=== PATIENT | female | born 1970 | race Caucasian/White ===

== ENCOUNTER 2020-09-02 10:03 | Emergency (ER) | payer OTHER ==
[~2020-09-02 10:03] MED LIST: ASPIR 8181 MG PO; EFFEXOR XR150 MG PO; ESTROVEN ENERG1 EACH PO; HCTZ25 MG PO; KRILL OIL500 MG PO; LIPITOR20 MG PO; SINGULAIR10 MG PO; SYNTHROID50 MCG PO; TENORMIN50 MG PO; VALSARTAN80 MG PO; VENLAFAXINE HCL75 M1 PO
[2020-09-02 11:09] LABS: BASOPHIL 0.7 % (0-2); EOSINOPHIL 2.1 % (0-5); HCT 47.1 % (37.0-47.0); HGB 16.1 g/dl (12.5-16.0); LYMPHOCYTE 22.3 % (15-48); MCH 31.9 pg (25.0-31.0); MCHC 34.2 g/dL (32.0-36.0); MCV 93.3 fL (78.0-100.0); MONOCYTE 11.4 % (0-12); NEUTROPHIL 62.5 % (41-80); NRBC 0; PLT 254 K/uL (150-400); RBC 5.05 M/uL (4.20-5.40); RDW 12.1 % (11.5-14.0)
[2020-09-02 11:42] LABS: INR 0.98 (0.9-1.2); PROTHROMBIN TIME 12.3 SECONDS (11.4-13.6)
[2020-09-02 11:54] LABS: ALBUMIN 3.4 g/dL (3.4-5.0); BILIRUBIN - TOTAL 0.9 mg/dL (0.2-1.0); BUN/CREAT RATIO (CALC) 16.2 RATIO; CREATININE 0.68 mg/dL (0.51-0.95); GLOBULIN (CALCULATION) 3.6 g/dL; MAGNESIUM 1.8 mg/dL (1.8-2.4); POTASSIUM 4.2 mmol/L (3.5-5.1)
[2020-09-02 17:48] LABS: BILIRUBIN NEGATIVE (NEGATIVE); BLOOD 3+ Ery/uL (NEGATIVE); CLARITY CLEAR (CLEAR); COLOR YELLOW (YELLOW); GLUCOSE (U) NORMAL (NORMAL); LEUKOCYTES NEGATIVE Leu/uL (NEGATIVE); NITRITE NEGATIVE (NEGATIVE); PROTEIN NEGATIVE (NEGATIVE); SPECIFIC GRAVITY <=1.005 (1.001-1.030); UROBILINOGEN 0.2 mg/dL (0.2-1.0); pH 6.5 (5.0-9.0)
[2020-09-02 17:55] LABS: SQUAMOUS EPITHELIAL CELLS RARE
[2020-09-02] MEDS ORDERED: ZOFRAN4 M1 PO (18:01)
== END 2020-09-02 18:07 | disposition home or self-care (01) ==
LOC: FER 10:03
PROVIDERS: Emergency Medicine
DX: S32.010A Wedge compression fracture of first lumbar vertebra, initial encounter for closed fracture (principal); M48.07 Spinal stenosis, lumbosacral region; N13.2 Hydronephrosis with renal and ureteral calculous obstruction; M51.27 Other intervertebral disc displacement, lumbosacral region; R47.81 Slurred speech; I10 Essential (primary) hypertension; X58.XXXA Exposure to other specified factors, initial encounter
CPT/HCPCS: 36415; 70450; 70551; 71045; 72131; 80053; 81001; 83735; 84443; 85025; 85610; 93005; J1170; J2405; Q9967

== ENCOUNTER 2021-03-12 21:05 | Emergency (ER) | payer OTHER ==
[~2021-03-12 21:05] MED LIST changes: +ZOFRAN4 M1 PO
[2021-03-12 22:25] LABS: BASOPHIL 0.8 % (0-2); EOSINOPHIL 3.1 % (0-5); HGB 14.7 g/dl (12.5-16.0); LYMPHOCYTE 31.2 % (15-48); MCH 31.5 pg (25.0-31.0); MCHC 34.2 g/dL (32.0-36.0); MCV 92.1 fL (78.0-100.0); MONOCYTE 13.7 % (0-12); MPV 9.8 fL (6.0-9.5); NEUTROPHIL 50.9 % (41-80); NRBC 0; PLT 251 K/uL (150-400); RBC 4.67 M/uL (4.20-5.40); RDW 12.2 % (11.5-14.0); WBC 9.3 K/uL (4.0-10.5)
[2021-03-12 22:32] LABS: ALBUMIN 3.4 g/dL (3.4-5.0); BILIRUBIN - TOTAL 0.4 mg/dL (0.2-1.0); BUN/CREAT RATIO (CALC) 21.2 RATIO; CREATININE 0.66 mg/dL (0.51-0.95); GLOBULIN (CALCULATION) 3.1 g/dL; POTASSIUM 3.6 mmol/L (3.5-5.1); TOTAL PROTEIN 6.5 g/dL (6.4-8.2)
[2021-03-13 02:24] LABS: BILIRUBIN NEGATIVE (NEGATIVE); BLOOD NEGATIVE Ery/uL (NEGATIVE); CLARITY CLEAR (CLEAR); COLOR YELLOW (YELLOW); GLUCOSE (U) NORMAL (NORMAL); LEUKOCYTES TRACE Leu/uL (NEGATIVE); NITRITE NEGATIVE (NEGATIVE); PROTEIN NEGATIVE (NEGATIVE); SPECIFIC GRAVITY 1.025 (1.001-1.030); UROBILINOGEN 0.2 mg/dL (0.2-1.0)
[2021-03-13 02:30] LABS: BACTERIA TRACE; URINARY WBC RARE
[2021-03-13] MEDS ORDERED: CYCLOBENZAPRINE10 MG PO (14:20)
[2021-03-13] MEDS ORDERED: NAPROXEN500 MG PO (14:20)
== END 2021-03-13 14:45 | disposition home or self-care (01) ==
LOC: FER 21:05
PROVIDERS: Emergency Medicine
DX: M54.50 Low back pain, unspecified (principal); I10 Essential (primary) hypertension; Z79.82 Long term (current) use of aspirin; Z20.822 Contact with and (suspected) exposure to COVID-19
CPT/HCPCS: 36415; 72158; 76705; 80053; 81001; 84484; 85025; 93005; A9579; J1170; J1885; J2270; J2405; J7030; U0002